=== PATIENT | female | born 1950 | race American Indian/Alaskan Native ===

== ENCOUNTER 2017-09-10 16:08 | Emergency (ER) | payer BC ==
[2017-09-10 16:30] VITALS: BP 164/87
[2017-09-10] MEDS ORDERED: BSS 1 DROPS, TETRACAINE 0.5% 1 DROPS, FUL-GLO 0.6 MG OD ONE (16:53)
[2017-09-10] MEDS ORDERED: FUL-GLO OP ONE (17:00)
--- NOTE | 2017-09-10 17:00 | Emergency Department Report ---
Eye Injury/Foreign Body - HPI Duration: Today Eye Location: Right Tetanus Status: Up to Date Eye Symptoms: Eye Pain: Yes, Blurred Vision: No, Eye Redness: Yes, Grinding/ Hammering Metal: No, Used Eye Protection: No, Contact Lens Use: No, Recalls Injury: No, Photophobia: No Other History: 66-year-old female past medical history hypertension presents with complaint of right eye injury. Patient states she accidentally poked herself in the right eye while in bed this morning. Patient denies any blurry vision or bleeding from eye. Patient denies wearing contacts. Patient is awake alert and oriented 3. States her tetanus vaccine is up-to-date. ED Review of Systems ROS: Stated complaint: CORNEAL ABRASION Other details as noted in HPI Constitutional: denies: chills, fever Eyes: eye pain. denies: eye discharge, vision change ENT: denies: ear pain, throat pain Respiratory: denies: cough, shortness of breath, wheezing Cardiovascular: denies: chest pain, palpitations Endocrine: no symptoms reported Gastrointestinal: denies: abdominal pain, nausea, diarrhea Genitourinary: denies: urgency, dysuria, discharge Musculoskeletal: denies: back pain, joint swelling, arthralgia Skin: denies: rash, lesions Neurological: denies: headache, weakness, paresthesias Psychiatric: denies: anxiety, depression Hematological/Lymphatic: denies: easy bleeding, easy bruising ED Past Medical Hx - Past Medical History Hx Hypertension: Yes - Surgical History Additional Surgical History: HYSTO - Social History Smoking Status: Never Smoker Substance Use Type: None - Medications Home Medications: Home Medications Medication Instructions Recorded Confirmed Last Taken Type Erythromycin [Erythromycin Ophth 1 applic OP QID #1 tube 09/10/17 Unknown Rx Oint] Ibuprofen [Motrin] 600 mg PO Q8H PRN #15 tablet 09/10/17 Unknown Rx Eye Injury Exam - Exam General: Vital signs noted. No distress. Alert and acting appropriately. - Visual Acuity Right Vision Acuity Degree: 20/30 Eye Exam: Right Injection, Right Chemosis, Right Fluorescein Uptake (visible corneal abrasion atop of the limbus right iris. It does not overlie pupil.), Right Photophobia, Both EOMI ED Course Vital Signs 09/10/17 16:26 Temperature 98.5 F Pulse Rate 77 Respiratory 18 Rate Blood Pressure 164/87 O2 Sat by Pulse 96 Oximetry ED Medical Decision Making - Medical Decision Making A/P: Right corneal abrasion 1-erythromycin ointment 2-Motrin when necessary 3-follow up with ophthalmology visual acuity is 20/30 each eye and 20/30 bilaterally 4-tetanus vaccine status up-to-date Critical care attestation.: If time is entered above; I have spent that time in minutes in the direct care of this critically ill patient, excluding procedure time. ED Disposition Clinical Impression: Corneal abrasion Qualifiers: Encounter type: initial encounter Laterality: right Qualified Code(s): S05.01XA - Injury of conjunctiva and corneal abrasion without foreign body, right eye, initial encounter Disposition: TO HOME OR SELFCARE Is pt being admited?: No Does the pt Need Aspirin: No Condition: Stable Instructions: Corneal Abrasion (ED) Prescriptions: Erythromycin [Erythromycin Ophth Oint] 1 applic OP QID #1 tube Ibuprofen [Motrin] 600 mg PO Q8H PRN #15 tablet PRN Reason: Pain Referrals: ALLA SLATER MD [Staff Physician] - 3-5 Days MERLENE KONG MD [Staff Physician] - 3-5 Days Time of Disposition: 17:27
[2017-09-10] MEDS ORDERED: ERYTHROMYCIN OPHTH OINT OU ONE (18:30)
== END 2017-09-10 17:50 | disposition home or self-care (01) ==
LOC: ED 16:08
DX: S05.01XA Injury of conjunctiva and corneal abrasion without foreign body, right eye, initial encounter (principal); X58.XXXA Exposure to other specified factors, initial encounter; Y93.89 Activity, other specified; Y92.89 Other specified places as the place of occurrence of the external cause; Y99.8 Other external cause status
CPT/HCPCS: 99282